=== PATIENT | male | born 1980 | race American Indian/Alaskan Native ===

== ENCOUNTER 2016-08-21 01:36 | Emergency (ER) | payer SELFPAY ==
[2016-08-21 01:54] VITALS: BP 143/89
[2016-08-21] MEDS ORDERED: DUONEB 0.5 MG-3 MG/3 ML SOLN IH ONE ×2 (02:07→02:20)
[2016-08-21] MEDS ORDERED: PROVENTIL IH ONE ×2 (02:08→02:21)
== END 2016-08-21 09:18 | disposition left against medical advice (07) ==
LOC: ED 01:36
DX: R06.2 Wheezing (principal); Z53.21 Procedure and treatment not carried out due to patient leaving prior to being seen by health care provider
CPT/HCPCS: 93005; 93010; 94640